=== PATIENT | female | born 1950 | race Caucasian/White ===

== ENCOUNTER 2023-11-04 19:52 | Inpatient (IN) | payer OTHER, MEDICAID ==
[2023-11-04 22:43] VITALS: BMI 34.4
[2023-11-04] MEDS ORDERED: Albuterol 200 PUFF (6.7GM INHALER) INH PRN (23:13)
[2023-11-04] MEDS ORDERED: Dextrose 50% Abboject 50 ML SYRINGE SLOW IVP PRN (23:14)
[2023-11-04] MEDS ORDERED: Dextrose 5% in Water 1,000 ML IV PRN (23:14)
[2023-11-04] MEDS ORDERED: Glucagon 1 MG/ML KIT IM PRN (23:14)
[2023-11-04] MEDS ORDERED: Nitroglycerin 0.4 MG TAB (25 Tab Bottle) SL PRN (23:46)
[2023-11-05] MEDS: Morphine 2 MG/ML VIAL SLOW IVP PRN (00:17)
[2023-11-05] MEDS: Ondansetron PF 4 MG/2 ML Vial IVP PRN (00:17)
[2023-11-05 02:07] LABS: Troponin I Less than 0.010 ng/mL (< 0.028)
[2023-11-05 04:35] LABS: #Basophils Less than 0.03 10x3/uL (0.0-0.2); %Basophils 0.3 % (0.0-1.0); %Eosinophils 3.9 % (0.0-10.0); %Lymphocytes 28.3 % (21.0-51.0); %Monocytes 8.1 % (0.0-10.0); %Neutrophils 59.1 % (42.0-75.0); Hematocrit 31.7 % (36.0-47.0); Hemoglobin 10.3 g/dL (12.0-16.0); Mean Corpuscular HGB CONC 32.5 g/dL (32.0-36.0); Mean Corpuscular Volume 86.1 fL (78.0-98.0); Mean Platelet Volume 10.2 fL (7.4-10.4); Platelet Count 123 10x3/uL (130-400); RBC Distribution Width 14.5 % (11.5-14.5); Red Blood Cell (RBC) Count 3.68 mill/uL (4.20-5.40)
[2023-11-05 05:04] LABS: Anion Gap 12 mmol/L (10-20); BUN (Urea Nitrogen) 14 mg/dL (9.8-20.1); Calc. Creatinine Clearance 89 mL/min (70-130); Calcium 8.7 mg/dL (7.8-10.44); Carbon Dioxide 26 mmol/L (23-31); Chloride 108 mmol/L (98-107); Estimated GFR 81; Glucose 85 mg/dL (83-110); Potassium 3.7 mmol/L (3.5-5.1); Sodium 142 mmol/L (136-145)
[2023-11-05] MEDS: Mometasone 200 MCG/Formoterol 5 MCG 120 PUFF INHALER INH SCH (07:38)
[2023-11-05] MEDS: Potassium Chloride 20 MEQ TAB PO SCH (09:17)
[2023-11-05] MEDS: Aspirin 81 mg Enteric Coated Tablet PO SCH (09:17)
[2023-11-05] MEDS: Amiodarone 200 MG TAB PO SCH (09:17)
[2023-11-05] MEDS: Gabapentin 300 MG CAP PO SCH (09:17)
[2023-11-05] MEDS: Pantoprazole DR 40 MG TAB PO SCH (09:17)
[2023-11-05] MEDS: Apixaban 2.5 MG TAB PO SCH (09:18)
[2023-11-05] MEDS: Triamterene/Hydrochlorothiazide 37.5 mg/25 mg Tablet PO SCH (09:18)
[2023-11-05] MEDS: BuPROPion XL 150 MG ER.TAB PO SCH (09:18)
[2023-11-05] MEDS: Acetaminophen 325 MG TAB PO PRN (09:25)
[2023-11-05 11:13] LABS: Troponin I Less than 0.010 ng/mL (< 0.028)
[2023-11-05] MEDS ORDERED: Regadenoson 0.4 MG/5 ML SYRINGE ONE (11:14)
[2023-11-05] MEDS: Glimepiride 2 MG TAB PO SCH (18:01)
[2023-11-05] MEDS: Rosuvastatin 20 MG TAB PO SCH (21:16)
[2023-11-05] MEDS: Citalopram 20 MG TAB PO SCH (21:16)
[2023-11-05] MEDS: Anastrozole 1 MG TAB PO SCH (21:16)
[2023-11-06 05:28] LABS: Cardiac Risk 3.2 (Less than 4.5)
[2023-11-06 05:46] LABS: T4 10.72 ug/dL (4.87-11.72); Thyroid Stimulating Hormone 4.639 uIU/mL (0.35-4.94)
[2023-11-07] MEDS: Sodium Chloride 0.9% 1,000 ML IV SCH (05:36)
[2023-11-07] MEDS ORDERED: Communication Order-Pharmacy FS SCH (08:00)
[2023-11-07] MEDS ORDERED: fentaNYL 50 mcg/mL 1 mL Vial ONE (08:11)
[2023-11-07] MEDS ORDERED: Midazolam HCl 2 mg/2 ml Vial ONE (08:11)
[2023-11-07] MEDS ORDERED: Heparin 10,000 UNITS/ 10 ML VIAL ONE (08:12)
[2023-11-07] MEDS ORDERED: Nitroglycerin 50 MG/250 ML BOT 0 ML ONE (08:12)
[2023-11-07] MEDS ORDERED: hydrALAZINE 20 MG/ML VIAL ONE (08:55)
[2023-11-07] MEDS ORDERED: Sodium Chloride 0.9% 200 ML IV PRN (09:21)
[2023-11-07] MEDS ORDERED: Nitroglycerin 0.4 MG TAB (25 Tab Bottle) SL PRN (09:21)
[2023-11-07 11:44] VITALS: BP 140/63; TEMP 97.7
[2023-11-07] MEDS ORDERED: Potassium Chloride 20 MEQ TAB PO SCH (17:00)
[2023-11-08] MEDS ORDERED: Amiodarone 200 MG TAB PO SCH (09:00)
[2023-11-08] MEDS ORDERED: Ezetimibe 10 MG TAB PO SCH (09:00)
[2023-11-09] MEDS ORDERED: Apixaban 2.5 MG TAB PO SCH (09:00)
== END 2023-11-07 15:39 | disposition home or self-care (01) | DRG 287 ==
LOC: 2NO 19:52 → UNDOADMOB 19:52 → 2NO 22:14 → OBSVTOIN 11-05 18:35
PROVIDERS: ADMIT Student in an Organized Health Care Education/Training Program; ATTEND Internal Medicine
PROC: 4A023N7 Measurement of Cardiac Sampling and Pressure, Left Heart, Percutaneous Approach (ICD-10-PCS; principal; 2023-11-07)
PROC: B2111ZZ Fluoroscopy of Multiple Coronary Arteries using Low Osmolar Contrast (ICD-10-PCS; 2023-11-07)
PROC: B2131ZZ Fluoroscopy of Multiple Coronary Artery Bypass Grafts using Low Osmolar Contrast (ICD-10-PCS; 2023-11-07)
PROC: B2181ZZ Fluoroscopy of Left Internal Mammary Bypass Graft using Low Osmolar Contrast (ICD-10-PCS; 2023-11-07)
DX: I25.110 Atherosclerotic heart disease of native coronary artery with unstable angina pectoris (principal); T82.855A Stenosis of coronary artery stent, initial encounter; E11.9 Type 2 diabetes mellitus without complications; I10 Essential (primary) hypertension; E78.5 Hyperlipidemia, unspecified; F32.A Depression, unspecified; E66.9 Obesity, unspecified; Y71.2 Prosthetic and other implants, materials and accessory cardiovascular devices associated with adverse incidents; Y84.0 Cardiac catheterization as the cause of abnormal reaction of the patient, or of later complication, without mention of misadventure at the time of the procedure; I48.0 Paroxysmal atrial fibrillation; J45.30 Mild persistent asthma, uncomplicated; Z88.1 Allergy status to other antibiotic agents; Z88.5 Allergy status to narcotic agent; Z79.899 Other long term (current) drug therapy; Z79.01 Long term (current) use of anticoagulants; Z95.1 Presence of aortocoronary bypass graft; Z79.84 Long term (current) use of oral hypoglycemic drugs; Z79.51 Long term (current) use of inhaled steroids; Z86.73 Personal history of transient ischemic attack (TIA), and cerebral infarction without residual deficits; Z90.710 Acquired absence of both cervix and uterus; Z68.34 Body mass index [BMI] 34.0-34.9, adult; Z85.43 Personal history of malignant neoplasm of ovary
CPT/HCPCS: 36415; 36416; 78452; 80048; 80061; 84436; 84443; 84484; 85025; 93017; 93306; 93459; 99152; 99153; A9502; C1725; C1769; C1887; C1894; J0360; J1644; J2250; J2272; J2405; J2785; J3010; J7050